=== PATIENT | male | born 1970 | race Caucasian/White ===

== ENCOUNTER 2017-07-20 06:28 | Emergency (ER) | payer MEDICAID ==
[~2017-07-20] VITALS: Ht 157.5 cm; Wt 78.0 kg
[~2017-07-20 06:28] MED LIST: ACET325T33 PO; GLIP5TAB13 PO; IBUP800T25 PO; MTF1000T PO; OSLT75C PO
[2017-07-20 06:33] VITALS: Ht 157.5 cm; Wt 78.0 kg
--- NOTE | 2017-07-20 07:10 | RADRPT ---
PROCEDURE: XR Chest. CLINICAL INDICATION: Cough. TECHNIQUE: Single frontal view. COMPARISON: 08/27/2014. FINDINGS: The lungs are clear. The heart size is normal. There is no pleural effusion. There is no pneumothorax. IMPRESSION: 1. Normal chest radiograph. 2. No change from 08/27/2014. RPTAT: QQ .Shahbaz Ross MD, MD Date Time Electronically viewed and signed by .Shahbaz Ross MD, MD on 07/20/2017 07:10 .R/
[2017-07-20] MEDS ORDERED: MED4DP PO (07:22)
[2017-07-20] MEDS ORDERED: GUAI-637 PO (07:22)
[2017-07-20] MEDS ORDERED: ALBU8.5H3 INH (07:23)
--- NOTE | 2017-07-20 07:58 | ERD ---
ER Documentation Chief Complaint Chief Complaint cough x 1 week HPI This is a 46-year-old male presents to the ER brought in by his family for a cough that is been going on for the last 8 days. Cough is productive and has been worsening. Patient has had fevers, however they have resolved. He does admit to some chest pain only with coughing. He denies any shortness of breath. Patient denies any hemoptysis. Patient has a past medical history of diabetes and is compliant with his medication. He denies drinking or smoking. ROS 12 point review of systems was done, all negative except per HPI. Medications Home Meds Active Scripts Albuterol Sulfate* (Proair HFA*) 8.5 Gm Hfa.aer.ad, 2 PUFF INH Q4, #1 INHALER Prov:MIRELLA PRATT 07/20/17 Guaifenesin* (Robitussin*) 100 Mg/5 Ml Syrup, 200 MG PO Q4H Y for COUGH for 3 Days, ML Prov:MIRELLA PRATT 07/20/17 Methylprednisolone* (Medrol* DOSE PACK) 4 Mg/Dose-Pack Tab.ds.pk, 4 MG PO . DIRECTED for 6 Days, PACKET Prov:MIRELLA PRATT 07/20/17 Oseltamivir Phosphate* (Tamiflu*) 75 Mg Capsule, 75 MG PO BID for 5 Days, CAP Prov:JON MARTINEZ PA-C 10/30/15 Acetaminophen* (Tylenol*) 325 Mg Tablet, 2 TAB PO Q8 Y for PAIN AND OR ELEVATED TEMP, #20 TAB Prov:JON MARTINEZ PA-C 10/30/15 Ibuprofen* (Motrin*) 800 Mg Tab, 800 MG PO Q6, #30 TAB Prov:JON MARTINEZ PA-C 10/30/15 Reported Medications Glipizide* (Glipizide*) 5 Mg Tablet, 5 MG PO BID, TAB 08/27/14 Metformin* (Glucophage*) 1,000 Mg Tablet, 1000 MG PO BID, TAB 08/27/14 Allergies Allergies: Coded Allergies: No Known Drug Allergies (Verified Allergy, Unknown, 08/27/14) PMhx/Soc History of Surgery: No Anesthesia Reaction: No Hx Neurological Disorder: No Hx Respiratory Disorders: No Hx Cardiac Disorders: Yes (DM) Hx Psychiatric Problems: No Hx Miscellaneous Medical Probl: No Hx Alcohol Use: Yes (OCCASSSIONALLY) Hx Substance Use: No Hx Tobacco Use: No Physical Exam Vitals Vital Signs Date Time Temp Pulse Resp B/P Pulse Ox O2 Delivery O2 Flow Rate FiO2 07/20/17 06:33 98.8 70 18 117/69 99 Physical Exam GENERAL: The patient is well-developed, well-nourished, in no acute distress. NECK: Cervical spine is non tender with no step off. Supple, no nuchal rigidity HEENT: Atraumatic. Pupils equal, round and reactive to light. Extraocular muscles are grossly intact. Conjunctivae pink, no discharge. Bilateral tympanic membranes are clear with no evidence of erythema, effusion or dulling of the light reflex. Tonsilar erythema with no exudates or uvular deviation. Clear rhinorrhea. RESPIRATORY: Clear to auscultation bilaterally. There are no rales, wheezes or rhonchi. HEART: Regular rate and rhythm. No murmurs, clicks, rubs or gallops. EXTREMITIES: No clubbing or cyanosis. Full range of motion. Grossly neurovascularly intact. NEUROLOGIC: Alert and oriented. Cranial nerves II through XII are intact. SKIN: There is no rash. The skin is warm and dry. Results 24 hrs [place] [id number] Radiology Main Line: [phone] DIAGNOSTIC IMAGING REPORT Patient: CHIRAG IBRAHIM : 1970 Age: 46 Sex: M MR #: [id number] DOS: 07/20/17 0000 Ordering MD: MIRELLA PRATT PA-C Location: E Room/Bed: PROCEDURE: XR Chest. CLINICAL INDICATION: Cough. TECHNIQUE: Single frontal view. COMPARISON: 08/27/2014. FINDINGS: The lungs are clear. The heart size is normal. There is no pleural effusion. There is no pneumothorax. IMPRESSION: 1. Normal chest radiograph. 2. No change from 08/27/2014. RPTAT: QQ .Shahbaz Ross MD, MD Date Time Electronically viewed and signed by .Shahbaz Ross MD, MD on 07/20/2017 07:10 .R/ CC: MIRELLA PRATT Procedures/[facility] EKG was done [address] elevation no T-wave inversion this EKG was read by Dr. Bolanos Differential diagnosis includes but is not limited to; Viral URI, allergic rhinitis, bronchitis, pertussis,pneumonia. This is likely viral in etiology. Clinical suspicion for pneumonia is low as patient appears well, is not hypoxic or in any respiratory distress. Additionally, patients physical examination is benign. Sheet will be sent home with a short course of steroids, I did discuss with the family that steroids may cause an increase in the patient's blood sugar and counseled them on diet options that are low in carbs. She will also be sent home with Robitussin and an inhaler. Plan was discussed with patient they understand and agree. Patient needs to follow up with PCP in 1-2 days or return to ER sooner if symptoms worsen. Departure Diagnosis: Primary Impression: Bronchitis Condition: Stable Patient Instructions: What Is Bronchitis? Additional Instructions: Llame al doctor MAANA y alexus iris RAFFI PARA DENTRO DE 1-2 [place].Dgale a la secretaria que nosotros le instruimos hacer esta raffi.Avise o llame si ramirez condicin se empeora antes de la raffi. Regresa aqui si peor o no mejor. MIRELLA PRATT Jul 20, 2017 07:58
[2017-07-20 08:03] VITALS: BP 120/70; PULSE 84; RESP 20; TEMP 97.3
== END 2017-07-20 08:00 | disposition home or self-care (01) ==
LOC: FTE 06:28
DX: J40 Bronchitis, not specified as acute or chronic (principal); E11.9 Type 2 diabetes mellitus without complications; R07.9 Chest pain, unspecified; Z79.84 Long term (current) use of oral hypoglycemic drugs
CPT/HCPCS: 71010; 93005; Z7502

== ENCOUNTER 2018-01-11 16:35 | Emergency (ER) | END 2018-01-11 17:55 | disposition home or self-care (01) ==

== ENCOUNTER 2019-04-22 16:44 | Emergency (ER) | payer MEDICAID ==
[~2019-04-22] VITALS: Ht 175.3 cm; Wt 84.0 kg
[~2019-04-22 16:44] MED LIST changes: +ALBU8.5H8 INH; +AMOX1TAB10 PO; +GUAI-637 PO; +HYDR-4011 PO; +IBUP-1542 PO; -IBUP800T25 PO; +IBUP800T48 PO; +MED4DP PO; +OSEL75CA23 PO; -OSLT75C PO; +TRAM50TA2 PO
[2019-04-22 16:49] VITALS: Ht 175.3 cm; Wt 84.0 kg
[2019-04-22] MEDS ORDERED: KETOROLAC 30 MG INJ IM STA (17:28)
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
[2019-04-22 19:31] VITALS: BP 145/82; PULSE 77; RESP 16
== END 2019-04-22 19:34 | disposition home or self-care (01) ==
LOC: FTE 16:44 → EDBD 16:44 → FTE 19:34
DX: S00.83XA Contusion of other part of head, initial encounter (principal); E11.9 Type 2 diabetes mellitus without complications; Y08.89XA Assault by other specified means, initial encounter; Z79.84 Long term (current) use of oral hypoglycemic drugs
CPT/HCPCS: 70450; 70486; 72100; 96372; J1885; Z7502